=== PATIENT | male | born 1985 | race African-American/Black ===

== ENCOUNTER 2018-06-21 20:23 | Emergency (ER) | payer SELFPAY ==
[~2018-06-21] VITALS: Ht 172.7 cm; Wt 67.8 kg
[2018-06-21 20:25] VITALS: BP 114/75
[2018-06-21] MEDS ORDERED: DEXAMETHASONE 4 MG TABLET PO STA (20:51)
[2018-06-21] MEDS ORDERED: IBUPROFEN 800 MG TABLET PO STA (20:51)
[2018-06-21] MEDS ORDERED: DEXAMETHASONE 4 MG TABLET ONE (21:01)
[2018-06-21] MEDS ORDERED: IBUPROFEN 200 MG TABLET ONE (21:02)
--- NOTE | 2018-06-21 21:08 | NUR ---
pt medicated per emar. pt tolerated well.
--- NOTE | 2018-06-21 21:15 | NUR ---
PT GIVEN DC INSTRUCTIONS AND SCRIPT. PT EDUCATED REGARDING DC MEDICATION WHICH IS TESJOSE PEREYRA. PT AMB TO DC WITH STEADY GAIT. PT AOX4. RESPS EVEN AND UNLABORED.
== END 2018-06-21 21:17 | disposition home or self-care (01) ==
LOC: ED 20:38
DX: J02.8 Acute pharyngitis due to other specified organisms (principal); B34.9 Viral infection, unspecified
CPT/HCPCS: 71046; 99283

== ENCOUNTER 2018-08-11 00:19 | Emergency (ER) | payer SELFPAY ==
[~2018-08-11] VITALS: Ht 172.7 cm; Wt 70.0 kg
[2018-08-11 00:21] VITALS: BP 126/82
--- NOTE | 2018-08-11 00:29 | NUR ---
PT TO LOBBY, WAIT TIME EXPLAINED.
== END 2018-08-11 01:47 | disposition home or self-care (01) ==
LOC: ED 01:41
DX: K02.9 Dental caries, unspecified (principal)
CPT/HCPCS: 99283